=== PATIENT | male | born 1960 | race Caucasian/White ===

== ENCOUNTER 2020-08-26 01:10 | Emergency (ER) | payer MEDICARE ==
[~2020-08-26] VITALS: Ht 185.4 cm; Wt 170.5 kg
--- NOTE | 2020-08-26 01:15 | PHYS DOC ---
Past History Past Medical History: Alcoholism, Arthritis Smoking: Cigarettes Alcohol Use: Heavy General Adult HPI: HPI: " I guess I drank too much.. I always drink too much.. I guess I fell..." Patient is a 59 year old male who presents with above hx of heavy alcohol intake at local bar " [employer] Pt. originally fell approximately 2300 hrs. and paramedics were called, however at that time patient refused transport. Patient does have abrasions to his forehead. No loss consciousness per se patient is on Eliquis for A. fib a flutter. Patient does have contusion to Lt knee. Patient is ambulatory. With a wide gait. Patient normally follows with Dr. Diamond. Patient denies any syncope. Patient denies any loss of consciousness since initial fall.. Patient states he had a trip and fall. Patient does not remember his last tetanus vaccination. Review of Systems: Review of Systems: Constitutional: Denies fever or chills Eyes: Denies change in visual acuity HENT: Complains of abrasions to forehead and nose and head injury during fall approximately 2300 hrs. Respiratory: Denies cough or shortness of breath Cardiovascular: Denies chest pain or edema GI: Denies abdominal pain, nausea, vomiting, bloody stools or diarrhea : Denies dysuria Musculoskeletal: Complains of Lt knee pain Integument: Denies rash Neurologic: Denies headache, focal weakness or sensory changes Endocrine: Denies polyuria or polydipsia Lymphatic: Denies swollen glands Psychiatric: Denies depression or anxiety Family History: Family History: Noncontributory to presentation Current Medications: Current Meds: See nursing for home meds Allergies: Allergies: No known drug allergies Physical Exam: PE: Constitutional: no acute distress, intoxicated in appearance. [] HENT: Normocephalic, contusions abrasions to forehead and upper nose, bilateral external ears normal, oropharynx moist, no oral exudates, nose normal. [] Eyes: PERRLA, EOMI, conjunctiva injected, no discharge. [] Neck: Normal range of motion, no tenderness, supple, no stridor. [] Cardiovascular: Irregular heart rate regular irregular rhythm, no murmur [] PMI to the left Lungs & Thorax: Bilateral breath sounds equal apex on auscultation. Scattered wheezes particularly in bilateral bases Abdomen: Bowel sounds normal, soft, no tenderness, no masses, no pulsatile masses. Morbidly obese Skin: Warm, dry, no erythema, no rash. Contusions Back: No tenderness, no CVA tenderness. [] Extremities: Right knee tenderness, no cyanosis, no clubbing, ROM intact, right knee edema. [] Contusion lt knee. Patient can do straight leg lift. Neurologic: Alert and oriented X 3, moves all extremities on request, does have distal sensory,, discoordinated. Psychologic: Affect anxious, judgement impaired, mood normal. [] EKG: EKG: My interpretation EKG shows a regular rate and rhythm overall morphology appears to be A. fib [] Radiology/Procedures: Radiology/Procedures: [address] [address] IMAGING REPORT Signed PATIENT: FREDY WEBER ACCOUNT: [id number] : 1960 LOCATION: ER AGE: 59 SEX: M EXAM STATUS: PRE ER ORD. PHYSICIAN: GUDELIA SCOTT MD REASON: Fall, left knee pain, swelling, bruising PROCEDURE: KNEE LEFT 4V 4 view left knee radiographs 08/26/2020 CLINICAL HISTORY: Fall with injury to the left knee. AP, lateral, oblique and sunrise digital radiographs of the left knee were obtained. No fracture or dislocation of the left knee is seen. Soft tissue swelling is seen anterior to the left knee. Mild degenerative changes are seen involving all 3 compartments of the left knee. There is no radiographic evidence of a joint effusion. Atherosclerotic calcification of the left popliteal artery and its branches is noted. IMPRESSION: No fracture or dislocation of the left knee is seen. Electronically signed by: Santiago Domingo MD (08/26/2020 3:29 AM) [id number] DICTATED AND SIGNED BY: SANTIAGO DOMINGO MD DATE: 08/26/207 CC: GUDELIA SCOTT MD ~MTH0 [address] [id number] IMAGING REPORT Signed PATIENT: FREDY WEBER ACCOUNT: [id number] : 1960 LOCATION: ER AGE: 59 SEX: M EXAM STATUS: PRE ER ORD. PHYSICIAN: GUDELIA SCOTT MD REASON: fall, dizziness PROCEDURE: PORTABLE CHEST 1V AP portable chest radiograph 08/26/2020 Clinical History: Fall. Two AP erect portable digital radiographs of the chest were obtained. The cardiac silhouette is borderline enlarged. The thoracic aorta is minimally t ortuous. No acute pulmonary infiltrate is seen. No pleural effusion or pneumothorax is noted. The osseous structures are grossly intact. IMPRESSION: No acute abnormality is seen. Electronically signed by: Santiago Domingo MD (08/26/2020 2:14 AM) [id number] DICTATED AND SIGNED BY: SANTIAGO DOMINGO MD DATE: 08/26/20212 CC: GUDELIA SCOTT MD ~MTH0 [address] [place] [id number] IMAGING REPORT Signed PATIENT: FREDY WEBER ACCOUNT: [id number] : 1960 LOCATION: ER AGE: 59 SEX: M EXAM STATUS: PRE ER ORD. PHYSICIAN: GUDELIA SCOTT MD REASON: face plant in bar- on [facility]. Dizzy PROCEDURE: CT HEAD AND CERVICAL SPINE WO CT scan of the head without contrast 08/26/2020 Clinical History: Fall with head injury. Anticoagulant therapy. Technique: Unenhanced, contiguous, 5 mm axial sections were obtained through the head. One or more of the following individualized dose reduction techniques were utilized for this study: 1. Automated exposure control. 2. Adjustment of the mA and/or kV according to patient size. 3. Use of iterative reconstruction technique. Findings: There is generalized parenchymal atrophy. Areas of decreased attenuation are seen within the periventricular and subcortical white matter of both cerebral hemispheres consistent with areas of small vessel ischemic disease. No acute parenchymal abnormality is seen. No extra-axial fluid collection is noted. No skull fracture is seen. Moderate mucosal thickening is involving left maxillary sinus. Impression: No acute intracranial abnormality is seen. CT scan of the cervical spine without contrast 08/26/2020 Clinical history: Fall with neck injury. Technique: Unenhanced, contiguous, 0.625 mm axial sections were obtained through the cervical spine. 2.5 mm reconstructed axial and 2 mm coronal and sagittal reconstructed images were obtained. One or more of the following individualized dose reduction techniques were utilized for this study: 1. Automated exposure control. 2. Adjustment of the mA and/or kV according to patient size. 3. Use of iterative reconstruction technique. Findings: Sagittal and coronal reconstructed images demonstrate straightening of the normal cervical lordosis. Degenerative changes consisting of disc space narrowing, vertebral endplate sclerosis and mild to moderate anterior vertebral body osteophyte formation are seen involving the mid and lower cervical disc spaces. No fracture or subluxation cervical vertebrae seen. Degenerative changes are seen involving the uncovertebral and facet joints throughout the cervical disc spaces. Moderate atherosclerotic calcifications in the region carotid bifurcations. Impression: No fracture or subluxation of the cervical vertebra is identified. Electronically signed by: Santiago Domingo MD (08/26/2020 2:07 AM) [id number] DICTATED AND SIGNED BY: SANTIAGO DOMINGO MD DATE: 08/26/20 0203 CC: GUDELIA SCOTT MD ~MTH0 0 Heart Score: HEART Score for Chest Pain: HEART Score for Chest Pain Response (Comments) Value History Moderately Suspicious 1 ECG Nonspecific Repolarizatio 1 Age >45 - < 65 1 Risk Factors 1 or 2 Risk Factors 1 Troponin < Normal Limit 0 Total 4 Risk Factors: Risk Factors: DM, Current or recent (<one month) smoker, HTN, HLP, family history of CAD, obesity. Risk Scores: Score 0 - 3: 2.5% MACE over next 6 weeks - Discharge Home Score 4 - 6: 20.3% MACE over next 6 weeks - Admit for Clinical Observation Score 7 - 10: 72.7% MACE over next 6 weeks - Early Invasive Strategies Course & Med Decision Making: Course & Med Decision Making Pertinent Labs and Imaging studies reviewed. (See chart for details) Patient in talk kitchen gradually. During ED visit. Patient to use ice packs as needed On Right Knee and Face. Abrasions to be treated with Polysporin 4 times a day. Patient encouraged to avoid further alcohol the day. Patient discharged home. Patient did call For a ride home. Patient follow-up with primary care Dr. Diamond. Impression: 1. Trip and fall 2. Intoxication-alcohol 3. Contusion Lt. knee [] Dragon Disclaimer: Dragon Disclaimer: This electronic medical record was generated, in whole or in part, using a voice recognition dictation system. Dragon Disclaimer This chart was dictated in whole or in part using Voice Recognition software in a busy, high-work load, and often noisy Emergency Department environment. It may contain unintended and wholly unrecognized errors or omissions. GUDELIA SCOTT MD Aug 26, 2020 01:15
[2020-08-26] MEDS ORDERED: FOLIC ACID 1 MG TABLET PO ONE (01:30)
[2020-08-26] MEDS ORDERED: TETANUS AND DIPHTHERIA TOX/PF 0.5 ML VIAL. VAX IM ONE (01:30)
[2020-08-26] MEDS ORDERED: DIPH,PERTUSS(ACELL),TET VAC/PF 0.5 ML SYRINGE. VAX IM ONE (01:30)
[2020-08-26] MEDS ORDERED: [UNRECOGNIZED DRUG - REMARK] IV ONE (01:30)
--- NOTE | 2020-08-26 02:09 | RAD ---
CT scan of the head without contrast 08/26/2020 Clinical History: Fall with head injury. Anticoagulant therapy. Technique: Unenhanced, contiguous, 5 mm axial sections were obtained through the head. One or more of the following individualized dose reduction techniques were utilized for this study: 1. Automated exposure control. 2. Adjustment of the mA and/or kV according to patient size. 3. Use of iterative reconstruction technique. Findings: There is generalized parenchymal atrophy. Areas of decreased attenuation are seen within t he periventricular and subcortical white matter of both cerebral hemispheres consistent with areas of small vessel ischemic disease. No acute parenchymal abnormality is seen. No extra-axial fluid collec tion is noted. No skull fracture is seen. Moderate mucosal thickening is involving left maxillary sin us. Impression: No acute intracranial abnormality is seen. CT scan of the cervical spine without contrast 08/26/2020 Clinical history: Fall with neck injury. Technique: Unenhanced, contiguous, 0.625 mm axial sections were obtained through the cervical spine. 2.5 mm reconstructed axial and 2 mm coronal and sagittal reconstructed images were obtained. One or more of the following individualized dose reduction techniques were utilized for this study: 1. Automated exposure control. 2. Adjustment of the mA and/or kV according to patient size. 3. Use of iterative reconstruction technique. Findings: Sagittal and coronal reconstructed images demonstrate straightening of the normal cervical lordosis. Degenerative changes consisting of disc space narrowing, vertebral endplate sclerosis and m ild to moderate anterior vertebral body osteophyte formation are seen involving the mid and lower cer vical disc spaces. No fracture or subluxation cervical vertebrae seen. Degenerative changes are seen involving the uncov ertebral and facet joints throughout the cervical disc spaces. Moderate atherosclerotic calcification s in the region carotid bifurcations. Impression: No fracture or subluxation of the cervical vertebra is identified. Electronically signed by: Santiago Domingo MD (08/26/2020 2:07 AM) [id number]
--- NOTE | 2020-08-26 02:17 | RAD ---
AP portable chest radiograph 08/26/2020 Clinical History: Fall. Two AP erect portable digital radiographs of the chest were obtained. The cardiac silhouette is borderline enlarged. The thoracic aorta is minimally tortuous. No acute pul monary infiltrate is seen. No pleural effusion or pneumothorax is noted. The osseous structures are g rossly intact. IMPRESSION: No acute abnormality is seen. Electronically signed by: Santiago Domingo MD (08/26/2020 2:14 AM) [id number]
--- NOTE | 2020-08-26 02:17 | EKG ---
[facility] ED [facility] [address] [place] [id number] Test Date: 2020-08-26 Test Time: 01:26:14 Pat Name: FREDY WEBER Department: Room: Gender: M Health Care Attorney: KING : 1960 Requested By: GUDELIA SCOTT Order Number: [id number] Reading MD: Measurements Intervals [place] Rate: 90 P: [place]: QRS: 14 QRSD: 70 T: 54 QT: 372 QTc: 459 Interpretive Statements IRREGULAR RHYTHM, NO P-WAVE FOUND OTHERWISE NORMAL ECG RI6.02 Compared to ECG 08/26/2020 01:24:46 No significant changes
[2020-08-26 02:23] LABS: BASO # 0.1 x10^3/uL (0.0-0.2); BASO % 1 % (0-3); EOS # 0.1 x10^3/uL (0.0-0.7); EOS % 1 % (0-3); HEMATOCRIT 43.4 % (39.0-53.0); HEMOGLOBIN 14.2 g/dL (13.0-17.5); LYMPH # 1.6 x10^3/uL (1.0-4.8); LYMPH % 15 % (24-48); MEAN CORPUSCULAR HEMOGLOBIN 34 pg (25-35); MEAN CORPUSCULAR HGB CONC 33 g/dL (31-37); MEAN CORPUSCULAR VOLUME 103 fL (79-100); MONO # 0.7 x10^3/uL (0.0-1.1); MONO % 7 % (0-9); NEUT # 7.8 x10^3uL (1.8-7.7); NEUT % 76 % (31-73); PLATELET COUNT 118 x10^3/uL (140-400); RED BLOOD COUNT 4.23 x10^6/uL (4.30-5.70); WHITE BLOOD COUNT 10.3 x10^3/uL (4.0-11.0)
[2020-08-26 02:38] LABS: CALCIUM 9.1 mg/dL (8.5-10.1); CREATININE 1.9 mg/dL (0.7-1.3); GFR 36.2
[2020-08-26 02:43] LABS: ALBUMIN 3.3 g/dL (3.4-5.0); DIRECT BILIRUBIN 0.7 mg/dL (0.0-0.2); MAGNESIUM 1.7 mg/dL (1.8-2.4); TOTAL BILIRUBIN 1.3 mg/dL (0.2-1.0); TOTAL PROTEIN 7.4 g/dL (6.4-8.2)
[2020-08-26] MEDS ORDERED: IV RINGERS SOLUTION,LACTATED 1,000 ML IV ONE ×2 (02:59→03:00)
[2020-08-26] MEDS ORDERED: MAGNESIUM HYDROXIDE 2,400 MG/30 ML ORAL.SUSP. PO ONE (03:30)
--- NOTE | 2020-08-26 03:31 | RAD ---
4 view left knee radiographs 08/26/2020 CLINICAL HISTORY: Fall with injury to the left knee. AP, lateral, oblique and sunrise digital radiographs of the left knee were obtained. No fracture or d islocation of the left knee is seen. Soft tissue swelling is seen anterior to the left knee. Mild deg enerative changes are seen involving all 3 compartments of the left knee. There is no radiographic ev idence of a joint effusion. Atherosclerotic calcification of the left popliteal artery and its branch es is noted. IMPRESSION: No fracture or dislocation of the left knee is seen. Electronically signed by: Santiago Domingo MD (08/26/2020 3:29 AM) [id number]
[2020-08-26] MEDS ORDERED: NEOMY/BACITR/POLYMYXIN OINT PACKET. TP ONE (05:02)
[2020-08-26] MEDS ORDERED: BACITRACIN ZINC TOPICAL OINT PACKET. TP ONE (05:15)
[2020-08-26] MEDS ORDERED: ACETAMINOPHEN 500 MG TABLET PO ONE (05:15)
[2020-08-26 05:20] VITALS: BP 116/64
== END 2020-08-26 05:20 | disposition home or self-care (01) ==
LOC: ER 01:10
DX: S80.02XA Contusion of left knee, initial encounter (principal); F10.229 Alcohol dependence with intoxication, unspecified; M19.90 Unspecified osteoarthritis, unspecified site; F17.210 Nicotine dependence, cigarettes, uncomplicated; W01.0XXA Fall on same level from slipping, tripping and stumbling without subsequent striking against object, initial encounter; Y93.89 Activity, other specified; Y92.89 Other specified places as the place of occurrence of the external cause; Y99.8 Other external cause status
CPT/HCPCS: 36415; 70450; 71045; 72125; 73564; 80048; 80076; 82550; 83735; 84443; 84484; 85025; 85610; 85730; 90471; 90715; 93005; 96360; 99284; G0480; J7120; 99285

== ENCOUNTER 2021-06-01 12:28 | Inpatient (IN) | payer MEDICARE ==
[~2021-06-01] VITALS: Ht 190.5 cm; Wt 175.2 kg
[2021-06-01] VITALS (12 sets, daily range): BP systolic 102–148; BP diastolic 68–96
[2021-06-01] MEDS ORDERED: ALBUTEROL SULFATE 8GM INHALER. ONE (12:31)
--- NOTE | 2021-06-01 12:44 | PHYS DOC ---
Past History Past Medical History: Alcoholism, Arthritis, COPD Past Surgical History: Tonsillectomy, Other Additional Past Surgical Histo: adnoidectomy Smoking: Cigarettes Alcohol Use: Heavy Drug Use: None General Adult HPI: HPI: Patient is a 60-year-old male brought in by EMS for dyspnea. He reports he has been dyspneic for about 3 weeks. You had a positive Covid swab on the fourth of this month. He is not vaccinated against Covid. He reports that his cough is actually improved, though his dyspnea has worsened. He denies any chest pain. He denies any recent fevers or chills. He denies nausea, vomiting, diarrhea, constipation. He denies abdominal pain. He denies syncope or weakness. He d oes report exertional dyspnea. He has bilateral lower extremity swelling, which is chronic and unchanged. He has some mild redness of his left lower extremity, though he denies any significant pain. He reports that he scraped his leg against something several weeks ago. He has not sought any treatment or care for this. He not require hospitalization for his Covid infection. Review of Systems: Review of Systems: Constitutional: Denies fever or chills HENT: Denies nasal congestion or sore throat Respiratory: Reports dry, but improved cough. No sputum production. Reports dyspnea and dyspnea on exertion. Cardiovascular: Denies chest pain. Reports chronic but unchanged lower extremity edema. GI: Denies abdominal pain, nausea, vomiting, or diarrhea Musculoskeletal: Chronic bilateral lower extremity swelling. He denies joint pain or swelling. Denies back pain. Integument: Redness, abrasion, venous stasis of the left lower extremity. Neurologic: Denies headache, focal weakness or sensory changes Psychiatric: Denies depression or anxiety Current Medications: Current Meds: Current Medications Medications (Trade) Dose Ordered Sig/Shanae Start Time Stop Time Status Last Admin Dose Admin Albuterol Sulfate (Ventolin Hfa Inhaler) 60 puff STK-MED ONCE 06/01/21 12:31 06/01/21 12:31 DC Allergies: Allergies: Allergies Coded Allergies Type Severity Reaction Last Updated Verified No Known Drug Allergies 08/26/20 No Physical Exam: PE: Constitutional: Well developed, well nourished, he is chronically ill-appearing. He appears older than stated age. HENT: Normocephalic, atraumatic, oropharynx patent and clear. Eyes: Sclera clear, anicteric Neck: Trachea midline. No JVD. Cardiovascular: Initially tachycardic, regular, low 100s. +2 radial pulses bilaterally. Lungs & Thorax: Faint, end expiratory wheezes bilaterally. No stridor. Very minimal tachypnea. No retractions. Speaks in full and clear sentences. Diminished breath sounds in bilateral bases, diminished breath sounds more so on the left lower and left mid lung areas. Abdomen: Obese, soft, nondistended, nontender Skin: Warm, dry, there is subtle erythema of the left lower extremity, no tenderness, there is a healing abrasion on the left lateral lower extremity. No open wounds. No bleeding, no fluctuance, no drainage. No calf tenderness. Bilateral lower extremity 1+ pitting edema. Back: No deformity Extremities: No acute limb deformity. Venous stasis of the bilateral lower extremities, subtle erythema of the left lower extremity. Healing abrasion as described above. Bilateral lower extremity edema. No calf tenderness. No palpable crepitus, step-offs, subcutaneous emphysema. No dusky discoloration of the skin of the lower extremities. Neurologic: Alert and oriented X 3, normal motor function, normal sensory function, no focal deficits noted. [] Psychologic: His affect is flat. He is cooperative. [] EKG: EKG: EKG is interpreted at 1235 Rhythm is sinus Rate is 117 bpm Occasional PVCs No STEMI EKG is interpreted at 1542 Rhythm is atrial fibrillation Rate is 131 bpm No STEMI Radiology/Procedures: Radiology/Procedures: IMAGING REPORT Signed PATIENT: MARQUEZ AGUERO ACCOUNT: [id number] : 1960 LOCATION: ER AGE: 60 SEX: M EXAM STATUS: REG ER ORD. PHYSICIAN: JESSI SANTANA DO REASON: dyspnea PROCEDURE: PORTABLE CHEST 1V Single view of the chest. 06/01/2021 1:03 PM Indication: Reason: dyspnea / Spl. Instructions: / History: Comparison: Chest radiograph August 26, 2020 Findings: There is new are extensive, dense bilateral infiltrates. No pne umothorax or pleural effusion is seen. Heart size appears mildly enlarged. No acute osseous changes are seen. IMPRESSION: 1.Extensive dense bilateral pulmonary infiltrates raising concern for bilateral pneumonia including atypical or Covid pneumonia, or developing ARDS. 2. Cardiomegaly Electronically signed by: Josep Uribe MD (06/01/2021 1:16 PM) [id number] DICTATED AND SIGNED BY: JOSEP URIBE MD DATE: 06/01/21 1315 CC: BENTLEY AMARO MD; JESSI SANTANA DO ~MTH0 0 IMAGING REPORT Signed PATIENT: MARQUEZ AGUERO ACCOUNT: [id number] : 1960 LOCATION: ER AGE: 60 SEX: M EXAM STATUS: REG ER ORD. PHYSICIAN: JESSI SANTANA DO REASON: LE edema PROCEDURE: VENOUS LOWER EXT BILATERAL EXAM: Bilateral lower extremity venous Doppler sonogram. HISTORY: Pain and swelling. TECHNIQUE: Wong scale and color Doppler sonographic evaluation of the bilateral lower extremity veins with spectral waveform analysis was performed. FINDINGS: The exam is limited due to body habitus. There is normal color flow, normal compressibility and there are normal spectral waveforms in the common femoral, superficial femoral, popliteal, posterior tibial and greater saphenous veins. IMPRESSION: No Doppler evidence of lower extremity deep venous thrombosis. Electronically signed by: Ronda Jacob MD (06/01/2021 1:48 PM) [id number] DICTATED AND SIGNED BY: RONDA JACOB MD DATE: 06/01/21 1347 CC: BENTLEY AMARO MD; JESSI SANTANA DO ~MTH0 0 Heart Score: C/O Chest Pain: No Risk Factors: Risk Factors: DM, Current or recent (<one month) smoker, HTN, HLP, family history of CAD, obesity. Risk Scores: Score 0 - 3: 2.5% MACE over next 6 weeks - Discharge Home Score 4 - 6: 20.3% MACE over next 6 weeks - Admit for Clinical Observation Score 7 - 10: 72.7% MACE over next 6 weeks - Early Invasive Strategies Course & Med Decision Making: Course & Med Decision Making Pertinent Labs and Imaging studies reviewed. (See chart for details) The patient is resting comfortably on 6 L per nasal cannula oxygen. He is saturating 92% or above. He denies any active dyspnea. He repeatedly denies dyspnea and continues to deny chest pain. His heart rate did increase, became irregular, he appeared to convert to atrial fibrillation with rapid ventricular response. Blood pressure remained stable. I ordered IV fluids, as well as IV diltiazem bolus. Blood cultures are obtained. Lactic acid was mildly elevated. Fluid resuscitation was initiated, though fluid resuscitation should be proceeded with some caution. Chest x-ray shows multifocal pneumonia. He is empirically given IV Rocephin and IV azithromycin. His troponin is negative. BNP mildly elevated. The patient is resting comfortably, has no complaints, he does not appear to be in acute respiratory distress at present. I have explaine d my recommendation for admission. I contacted Dr. Spangler, who agrees to accept the patient. An ICU bed did open up here, so he will be placed in the ICU for admission. Ezequiel Disclaimer: Ezequiel Disclaimer: This electronic medical record was generated, in whole or in part, using a voice recognition dictation system. Departure Departure: Impression: Primary Impression: Respiratory failure with hypoxia Qualified Codes: J96.21 - Acute and chronic respiratory failure with hypoxia Additional Impressions: Multifocal pneumonia Chronic obstructive pulmonary disease Qualified Codes: J44.1 - Chronic obstructive pulmonary disease with (acute) exacerbation Disposition: ADMITTED INPATIENT Admitting Physician: Chang Spangler Condition: GUARDED Referrals: BENTLEY AMARO MD (PCP) JESSI SANTANA DO Jun 01, 2021 12:44
[2021-06-01] MEDS ORDERED: IPRATRPIUM/ALBUTEROL 0.5/2.5MG 3 ML NEBU. NEB ONE (12:45)
[2021-06-01] MEDS ORDERED: methylPREDNISolone SOD SUCC PF 125 MG/2 ML VIAL. IV ONE (12:45)
[2021-06-01 13:02] LABS: BGAS PH 7.48 (7.35-7.46)
--- NOTE | 2021-06-01 13:06 | EKG ---
[address] [address] Test Date: 2021-06-01 Test Time: 12:29:58 Pat Name: MARQUEZ AGUERO Department: Room: Gender: M District Representative: ANNIE : 1960 Requested By: JESSI SANTANA Order Number: [id number] Reading MD: Jan Noe Measurements Intervals [place] Rate: 117 P: [place]: QRS: 19 QRSD: 68 T: 62 QT: 294 QTc: 414 Interpretive Statements ATRIAL FIBRILLATION VENTRICULAR PREMATURE COMPLEX(ES) LOW LIMB LEAD VOLTAGE Electronically Signed On 06-06-2021 10:48:33 FIELD PLACEMENT DIRECTOR by Jan Noe
--- NOTE | 2021-06-01 13:19 | RAD ---
Single view of the chest. 06/01/2021 1:03 PM Indication: Reason: dyspnea / Spl. Instructions: / History: Comparison: Chest radiograph August 26, 2020 Findings: There is new are extensive, dense bilateral infiltrates. No pneumothorax or pleural effusio n is seen. Heart size appears mildly enlarged. No acute osseous changes are seen. IMPRESSION: 1.Extensive dense bilateral pulmonary infiltrates raising concern for bilateral pneumonia including a typical or Covid pneumonia, or developing ARDS. 2. Cardiomegaly Electronically signed by: Josep Bolton MD (06/01/2021 1:16 PM) [id number]
[2021-06-01 13:23] LABS: CREATININE 1.1 mg/dL (0.7-1.3); GFR 67.8
[2021-06-01 13:24] LABS: POTASSIUM 5.5 mmol/L (3.5-5.1)
[2021-06-01 13:37] LABS: ALBUMIN 1.5 g/dL (3.4-5.0); ALBUMIN/GLOBULIN RATIO 0.3 (1.0-1.7); TOTAL BILIRUBIN 1.5 mg/dL (0.2-1.0); TOTAL PROTEIN 6.5 g/dL (6.4-8.2)
--- NOTE | 2021-06-01 13:50 | RAD ---
EXAM: Bilateral lower extremity venous Doppler sonogram. HISTORY: Pain and swelling. TECHNIQUE: Wong scale and color Doppler sonographic evaluation of the bilateral lower extremity veins with spectral waveform analysis was performed. FINDINGS: The exam is limited due to body habitus. There is normal color flow, normal compressibility and there are normal spectral waveforms in the common femoral, superficial femoral, popliteal, poste rior tibial and greater saphenous veins. IMPRESSION: No Doppler evidence of lower extremity deep venous thrombosis. Electronically signed by: Ronda West MD (06/01/2021 1:48 PM) [id number]
[2021-06-01] MEDS ORDERED: AZITHROMYCIN 500 MG in IV NORMAL SALINE 250ML 250 ML IV ONE (14:00)
[2021-06-01] MEDS ORDERED: IV NORMAL SALINE 100ML 100 ML ONE (14:22)
[2021-06-01] MEDS ORDERED: AZITHROMYCIN 500 MG VIAL. IV ONE (14:23)
[2021-06-01] MEDS ORDERED: IV NORMAL SALINE 250ML 250 ML ONE (14:23)
[2021-06-01 14:41] LABS: BASO % 0 % (0-3); EOS # 0.2 x10^3/uL (0.0-0.7); EOS % 2 % (0-3); HEMATOCRIT 36.7 % (39.0-53.0); LYMPH # 0.5 x10^3/uL (1.0-4.8); LYMPH % 5 % (24-48); MEAN CORPUSCULAR HEMOGLOBIN 32 pg (25-35); MEAN CORPUSCULAR HGB CONC 33 g/dL (31-37); MEAN CORPUSCULAR VOLUME 97 fL (79-100); MONO # 0.5 x10^3/uL (0.0-1.1); MONO % 5 % (0-9); NEUT % 89 % (31-73); PLATELET COUNT 91 x10^3/uL (140-400); RED BLOOD COUNT 3.77 x10^6/uL (4.30-5.70); RED CELL DISTRIBUTION WIDTH 14.8 % (11.5-14.5); WHITE BLOOD COUNT 10.2 x10^3/uL (4.0-11.0)
[2021-06-01] MEDS ORDERED: IV NORMAL SALINE 500ML 500 ML IV ONE (15:15)
[2021-06-01] MEDS ORDERED: dilTIAZem 25 MG/5 ML VIAL IVP ONE ×2 (15:30→16:45)
--- NOTE | 2021-06-01 15:46 | EKG ---
[address] [address] Test Date: 2021-06-01 Test Time: 15:41:09 Pat Name: MARQUEZ AGUERO Department: Room: Gender: M Communications Operator: ANNIE : 1960 Requested By: JESSI SANTANA Order Number: [id number] Reading MD: Jan Noe Measurements Intervals [place] Rate: 131 P: [place]: QRS: 19 QRSD: 68 T: 51 QT: 294 QTc: 439 Interpretive Statements ATRIAL FIBRILLATION LOW LIMB LEAD VOLTAGE Electronically Signed On 06-06-2021 10:44:42 DRILLING SUPERINTENDENT by Jan Noe
[2021-06-01] MEDS: IPRATRPIUM/ALBUTEROL 0.5/2.5MG 3 ML NEBU. NEB SCH ×2 (16:00→20:02)
[2021-06-01] MEDS ORDERED: FURO-68 PO (16:43)
[2021-06-01] MEDS ORDERED: METF500T16 PO (16:45)
[2021-06-01] MEDS ORDERED: DILT180C2 PO (16:45)
[2021-06-01] MEDS ORDERED: PRAV20TA2 PO (16:45)
[2021-06-01] MEDS ORDERED: LISI20TA18 PO (16:45)
[2021-06-01] MEDS ORDERED: POTA-121 PO (16:46)
[2021-06-01] MEDS: dilTIAZem VIAL 125 MG in IV NORMAL SALINE 100ML 100 ML IV PRN (16:59)
[2021-06-01] MEDS: metFORMIN 500 MG TABLET PO SCH (18:10)
[2021-06-01] MEDS ORDERED: DEXTROSE 50% 25 GM / 50ML DISP.SYRIN. IV PRN (19:30)
[2021-06-01] MEDS: INSULIN LISPRO 300 UNITS/3 ML VIAL. SQ SCH (20:07)
[2021-06-01] MEDS: methylPREDNISolone SOD SUCC PF 125 MG/2 ML VIAL. IV SCH (21:15)
[2021-06-02] VITALS (21 sets, daily range): BP systolic 94–159; BP diastolic 61–118
[2021-06-02] MEDS: dilTIAZem VIAL 125 MG in IV NORMAL SALINE 100ML 100 ML IV PRN (00:19)
[2021-06-02] MEDS: IPRATRPIUM/ALBUTEROL 0.5/2.5MG 3 ML NEBU. NEB SCH ×2 (03:54→12:00)
[2021-06-02] MEDS: methylPREDNISolone SOD SUCC PF 125 MG/2 ML VIAL. IV SCH (06:00)
[2021-06-02] MEDS ORDERED: FLUT1BLS3 IH (06:50)
[2021-06-02] MEDS ORDERED: APIX5TAB3 PO (06:50)
[2021-06-02] MEDS ORDERED: ALBU2.5V8 IH (06:54)
[2021-06-02] MEDS: metFORMIN 500 MG TABLET PO SCH (08:07)
[2021-06-02] MEDS: INSULIN LISPRO 300 UNITS/3 ML VIAL. SQ SCH ×2 (08:11→12:20)
[2021-06-02] MEDS ORDERED: FUROSEMIDE 40 MG TABLET PO SCH (09:00)
[2021-06-02] MEDS ORDERED: ATORVASTATIN CALCIUM 10 MG TABLET. PO SCH (09:00)
[2021-06-02] MEDS ORDERED: FUROSEMIDE 40 MG/4 ML VIAL IVP ONE (10:00)
--- NOTE | 2021-06-02 10:41 | HP ---
DATE OF SERVICE: 06/02/2021 ADMIT DATE: 06/01/2021 ATTENDING PHYSICIAN: Dr. Chang Spangler. CHIEF COMPLAINT: Shortness of breath. HISTORY OF PRESENT ILLNESS: The patient is a 60-year-old gentleman admitted to the ED yesterday with increasing dyspnea and shortness of breath. He is desaturating oxygen saturations were quite low. He was given supplemental oxygen. Chest x-ray demonstrated bilateral infiltrates. He tested positive for COVID pneumonia on 05/12/2021. He has not been vaccinated. He regrets that decision. Right now, he is requiring 10 liters of oxygen by high flow nasal cannula to maintain sats around 90%. He has morbid obesity with a weight of 385 pounds. He also has paroxysmal atrial fibrillation requiring Cardizem drip. PAST MEDICAL HISTORY: Significant for COPD. He was smoking up to a month ago. He has a history of chronic alcoholism in the past and degenerative arthritis along with morbid obesity. PAST SURGICAL HISTORY: Includes adenoidectomy. He also has paroxysmal atrial fibrillation. He is not on any anticoagulation. ALLERGIES: He has no known drug allergies. CURRENT SCHEDULED MEDICATIONS: Include the following: He was on scheduled diltiazem 180 mg daily. He is on Eliquis, but he has not been compliant. Fluticasone, Lasix, lisinopril, metformin, potassium, and pravastatin. ALLERGIES: He has no known drug allergies. SOCIAL HISTORY: Smoker about 2 months ago. FAMILY HISTORY: Mom of complications of old age at 94. Father lived to 89, he of heart disease. He never . He is single, no children. He used to work at [employer]. He is now on disability. REVIEW OF SYSTEMS: He has not been vaccinated. He was a smoker. He had some recent contact. No nausea. No loss of taste. No history of blood clots. He is diabetic. All other systems reviewed and turned to be negative. PHYSICAL EXAMINATION: GENERAL: When I saw him, this is a pleasant, obese gentleman. VITAL SIGNS: Initial vital signs showed a blood pressure 115/84, pulse is 90 and regular, oxygen saturation 91% on 10 liters high flow oxygen. His temperature 97.4 degrees Fahrenheit. HEENT: Head is without trauma. Pupils are reactive. Sclerae nonicteric. The oropharynx is clear. NECK: Supple, no bruits identified. LUNGS: Coarse rhonchi bilaterally. CARDIOVASCULAR: Showed distant heart tones. No gallops. ABDOMEN: Soft. EXTREMITIES: Showed 2+ edema. NEUROLOGIC: Function focally intact. Speech is fluent. PERTINENT LABORATORY AND X-RAY STUDY: Initial chest x-ray showed extensive dense bilateral pulmonary infiltrates consistent with COVID pneumonia, also developing ARDS is a possibility he has cardiomegaly. No old x-rays for comparison. Laboratory studies on admission, his hemoglobin was 12.0 g/dL with a white count of 10,200. Nonfasting blood sugar 187. Lactate was adequate. Creatinine on admission was 1.1 mg/dL, potassium 5.5 mEq. Cardiac enzymes negative for coronary ischemia. Chest x-ray as noted. ASSESSMENT: 1. A 60-year-old gentleman with acute respiratory failure requiring high flow oxygen. He has significant hypoxemia. 2. COVID pneumonia. 3. Possible early acute respiratory distress syndrome. 4. Morbid obesity. 5. Paroxysmal atrial fibrillation. 6. Chronic anticoagulation. 7. Type 2 diabetes. PLAN: 1. Admit to the ICU. 2. Supplemental oxygen. 3. Empiric corticosteroids with management of sugars. 4. He was started on a Cardizem drip to maintain heart rate. Prognosis is quite guarded at this time. I spoke with the patient I believe that he may have further impending respiratory failure. I am in the process of trying to get him transferred to [facility] to higher level of care. EMILI DR: Michael TID: [id number] CC: BENTLEY AMARO MD
--- NOTE | 2021-06-02 11:46 | DS ---
DATE OF DISCHARGE: 06/02/2021 ATTENDING PHYSICIAN: Dr. Spangler. FINAL DISCHARGE DIAGNOSES: 1. Acute hypoxemic respiratory failure. 2. COVID pneumonia bilaterally. 3. Early acute respiratory distress syndrome. 4. Morbid obesity. 5. Paroxysmal atrial fibrillation with rapid ventricular rate controlled. 6. Chronic anticoagulation. 7. Type 2 diabetes mellitus. HISTORY AND PHYSICAL: The patient is a unvaccinated 60-year-old gentleman who came down with COVID pneumonia. Initial diagnosis was 3 weeks ago. He was at home. He did well, but got progressively worse. He was admitted through the ED. Chest x-ray demonstrated bilateral infiltrates with some cardiomegaly. He required a high liter flow oxygen to maintain saturations above 90%. PHYSICAL EXAMINATION: Please see the dictated note. PERTINENT LABORATORY AND X-RAY STUDIES: Chest x-ray as noted. Bilateral infiltrates consistent with atypical pneumonia. His hemoglobin was 12.0 g/dL, white count 10,200. Electrolytes within normal range. Nonfasting blood sugar 187. Creatinine was 1.1 mg percent. Sodium 132, potassium 5.5 mEq. COURSE IN HOSPITAL: The patient was admitted initially overnight. He unfortunately required higher doses of supplemental oxygen. We continued Rocephin and Zithromax along with Solu-Medrol and empiric Lovenox. On the second hospital day, arrangements were made for the patient to transfer to [facility], higher level of care, he may get worse before he gets better. He was discharged then with continuation of his Rocephin 1 gram IV q. 24, Zithromax 500 IV q. 24 hours, and Solu-Medrol 60 mg IV twice a day. He is anticoagulated with Eliquis 5 mg b.i.d. He will continue his Cardizem CD increased to 300 mg p.o. daily, Lasix daily, lisinopril 20 mg daily, metformin, potassium, and pravastatin. His prognosis is guarded. He was discharged then from our hospital in stable condition with explicit drug and follow up care. STEVEN/DEEDEE DR: STEVEN/christiana TID: [id number] CC: BENTLEY AMARO MD
[2021-06-02] MEDS ORDERED: AZITHROMYCIN 500 MG in IV NORMAL SALINE 250ML 250 ML IV SCH (14:30)
[2021-06-02] MEDS ORDERED: BUDESONIDE 0.5 MG/2 ML NEBU NEB ONE (17:00)
[2021-06-02] MEDS ORDERED: LACTOBACILLUS RHAMNOSUS GG 1 CAPSULE. PO SCH (21:00)
== END 2021-06-02 13:15 | disposition short-term general hospital (02) | DRG 177 ==
LOC: ER 12:28 → ICU 15:22 → ER 16:01
PROVIDERS: ADMIT Hospitalist; ATTEND Hospitalist
PROC: 5A0935A Assistance with Respiratory Ventilation, Less than 24 Consecutive Hours, High Flow/Velocity Cannula (ICD-10-PCS; principal; 2021-06-01)
PROC: 5A0935A Assistance with Respiratory Ventilation, Less than 24 Consecutive Hours, High Flow/Velocity Cannula (ICD-10-PCS; 2021-06-02)
DX: U07.1 COVID-19 (principal); J12.82 Pneumonia due to coronavirus disease 2019; J80 Acute respiratory distress syndrome; J44.0 Chronic obstructive pulmonary disease with (acute) lower respiratory infection; Z68.42 Body mass index [BMI] 45.0-49.9, adult; F10.20 Alcohol dependence, uncomplicated; E66.01 Morbid (severe) obesity due to excess calories; I48.0 Paroxysmal atrial fibrillation; E11.9 Type 2 diabetes mellitus without complications; Z87.891 Personal history of nicotine dependence; Z79.01 Long term (current) use of anticoagulants
CPT/HCPCS: 36415; 36600; 71045; 80053; 82803; 82947; 83605; 83735; 83880; 84484; 85025; 87040; 93005; 93970; 94640; 96365; 96375; J0456; J0696; J1815; J1940; J2930; J3490; J7040; J7050; 99285-25